=== PATIENT | female | born 1975 | race Caucasian/White ===

== ENCOUNTER 2016-12-15 17:42 | Emergency (ER) | payer OTHER ==
[2016-12-15 18:00] VITALS: TEMP 98
[2016-12-15] MEDS ORDERED: IOPAMIDOL (ISOVUE 370) 100 ML BTL IV ONE ×2 (19:21)
--- NOTE | 2016-12-15 19:29 | EDPHY ---
H & P Stated Complaint: dizzyness- feeling like she is in water since allergic RX on Time Seen by Provider: 12/15/16 17:50 HPI/ROS: Chief Complaint: Dizzy, headache, neck pain, difficulty concentrating HPI: 41-year-old woman who has been having this sensation of vertigo or unsteadiness on her feet as if the floor is moving around her, bilateral headache and some neck pain for the last 2 weeks. She believes that the symptoms began after she had an episode of anaphylaxis. She was seen in urgent care received Benadryl, steroids and epinephrine. This was on the month. Since that time she has had the symptoms which seem to be worsening. She has had some neck pain. She did see the chiropractor who believes that symptoms are secondary to her 1st cervical vertebrae. Denies any other traumatic injuries. No fevers or chills. No chest pain shortness of breath. No numbness or weakness. No vision or hearing changes. She states she is feeling very foggy and mildly confused. She has an appointment to see a neurologist in 5 days but is concerned that the symptoms are persisting. ROS: 10 point Review of Systems is negative except as noted in the HPI. PMH: Chronic fatigue syndrome years ago Social History: No smoking, occasional alcohol, no recreational drug use Family History: non-contributory Physical Exam: Gen: Awake, Alert, No Distress HEENT: Nose: no rhinorrhea Eyes: PERRLA, EOMI Mouth: Moist mucosa Neck: Supple, no JVD Chest: nontender, lungs clear to auscultation Heart: S1, S2 normal, no murmur Abd: Soft, non-tender, no guarding Back: no CVA tenderness, no midline tenderness Ext: no edema, non-tender Skin: no rash Neuro: CN II-XII intact, Sensation grossly intact, Strength 5/5 in bilateral upper and lower extremities, normal finger-nose, normal heel-oliveros. Negative Romberg. No nystagmus. Sensations fully intact. - Personal History LMP (Females 10-55): 15-21 Days Ago Current Tetanus Diphtheria and Acellular Pertussis (TDAP): Yes Tetanus Vaccine Date: 2010 - Medical/Surgical History Hx Asthma: Yes Hx Chronic Respiratory Disease: No Hx Diabetes: No Hx Cardiac Disease: No Hx Renal Disease: No Hx Cirrhosis: No Hx Alcoholism: No Hx HIV/AIDS: No Other PMH: ORTHO - Social History Smoking Status: Never smoked Constitutional: Initial Vital Signs Temperature (C) 36.6 C 12/15/16 17:57 Heart Rate 64 12/15/16 17:57 Respiratory Rate 18 12/15/16 17:57 Blood Pressure 154/100 H 12/15/16 17:57 O2 Sat (%) 94 12/15/16 17:57 O2 Delivery Mode Room Air Allergies/Adverse Reactions: No Known Allergies Allergy (Verified 11/14/12 16:58) Home Medications: Medication Instructions Recorded Albuterol INH Nucare 05/08/10 Albuterol [Proventil Neb] 2.5 mg IH QID #30 deyvial 05/10/10 Medical Decision Making - Diagnostics Imaging Results: Imaging Impressions Head CT 12/15/16 18:25 Impression: Normal. Results called and discussed with Todd James MD, at 12/15/2016 18:45 General information for patients regarding this examination can be found at [email or web address]. If you have questions or comments about this report, please contact me at [phone] (hospital) or [phone] (cell). Head CTA 12/15/16 19:17 Impression: Normal. Findings and recommendations discussed with Todd James MD at 2045 hour, 12/15/2016. Final report concurs with initial preliminary interpretation. Neck CTA 12/15/16 19:17 Impression: Normal. Note: All stenoses are calculated using NASCET Criteria. Findings and recommendations discussed with Todd James MD at 2045 hour, 12/15/2016. Final report concurs with initial preliminary interpretation. Imaging: Discussed imaging studies w/ scallop binder Radiologist ED Course/Re-evaluation: 41-year-old woman presenting with dizziness for the last 10 days or so some nausea and fogginess. She also has had some neck pain headache. Will obtain CT scan to rule out intracranial pathology reassess CT scan of the head is negative. Patient is having vertiginous symptoms with neck pain and headache and has had chiropractic manipulation. This is concerning for possible vertebral artery dissection. Will obtain CT angiogram head neck and reassess. CT angiograms are normal. No acute intracranial process identified on CT scanning at this time. Patient's symptomatology is nonfocal otherwise. No other findings on her neurologic exam. She has no point with Neurology in 5 days. Will discharge with follow-up as planned. She will return for any worsening of symptoms or any other concerns. No evidence of acute ischemic stroke at this time. - Data Points Medications Given: Discontinued Medications Sodium Chloride (Ns) 1,000 mls @ 0 mls/hr IV ONCE ONE; Wide Open PRN Reason: Protocol Stop: 12/15/16 20:08 Last Admin: 12/15/16 20:11 Dose: 1,000 mls Departure - Departure Disposition: Home, Routine, Self-Care Clinical Impression: Dizziness Condition: Good Instructions: Dizziness (ED) Additional Instructions: Follow up with your neurologist in 5 days as scheduled. Return to the emergency department for worsening dizziness, uncontrolled nausea or vomiting, worsening headache, fevers, chills, increasing confusion or any other concerns. Referrals: Ronit Leiva MD [[facility] [place] Primary Care Provider] - As per Instructions
--- NOTE | 2016-12-15 19:29 | EDPHY ---
H & P Stated Complaint: dizzyness- feeling like she is in water since allergic RX on Time Seen by Provider: 12/15/16 17:50 HPI/ROS: Chief Complaint: Dizzy, headache, neck pain, difficulty concentrating HPI: 41-year-old woman who has been having this sensation of vertigo or unsteadiness on her feet as if the floor is moving around her, bilateral headache and some neck pain for the last 2 weeks. She believes that the symptoms began after she had an episode of anaphylaxis. She was seen in urgent care received Benadryl, steroids and epinephrine. This was on the month. Since that time she has had the symptoms which seem to be worsening. She has had some neck pain. She did see the chiropractor who believes that symptoms are secondary to her 1st cervical vertebrae. Denies any other traumatic injuries. No fevers or chills. No chest pain shortness of breath. No numbness or weakness. No vision or hearing changes. She states she is feeling very foggy and mildly confused. She has an appointment to see a neurologist in 5 days but is concerned that the symptoms are persisting. ROS: 10 point Review of Systems is negative except as noted in the HPI. PMH: Chronic fatigue syndrome years ago Social History: No smoking, occasional alcohol, no recreational drug use Family History: non-contributory Physical Exam: Gen: Awake, Alert, No Distress HEENT: Nose: no rhinorrhea Eyes: PERRLA, EOMI Mouth: Moist mucosa Neck: Supple, no JVD Chest: nontender, lungs clear to auscultation Heart: S1, S2 normal, no murmur Abd: Soft, non-tender, no guarding Back: no CVA tenderness, no midline tenderness Ext: no edema, non-tender Skin: no rash Neuro: CN II-XII intact, Sensation grossly intact, Strength 5/5 in bilateral upper and lower extremities, normal finger-nose, normal heel-oliveros. Negative Romberg. No nystagmus. Sensations fully intact. - Personal History LMP (Females 10-55): 15-21 Days Ago Current Tetanus Diphtheria and Acellular Pertussis (TDAP): Yes Tetanus Vaccine Date: 2010 - Medical/Surgical History Hx Asthma: Yes Hx Chronic Respiratory Disease: No Hx Diabetes: No Hx Cardiac Disease: No Hx Renal Disease: No Hx Cirrhosis: No Hx Alcoholism: No Hx HIV/AIDS: No Other PMH: ORTHO - Social History Smoking Status: Never smoked Constitutional: Initial Vital Signs Temperature (C) 36.6 C 12/15/16 17:57 Heart Rate 64 12/15/16 17:57 Respiratory Rate 18 12/15/16 17:57 Blood Pressure 154/100 H 12/15/16 17:57 O2 Sat (%) 94 12/15/16 17:57 O2 Delivery Mode Room Air Allergies/Adverse Reactions: No Known Allergies Allergy (Verified 11/14/12 16:58) Home Medications: Medication Instructions Recorded Albuterol INH Nucare 05/08/10 Albuterol [Proventil Neb] 2.5 mg IH QID #30 deyvial 05/10/10 Medical Decision Making - Diagnostics Imaging Results: Imaging Impressions Head CT 12/15/16 18:25 Impression: Normal. Results called and discussed with Todd James MD, at 12/15/2016 18:45 General information for patients regarding this examination can be found at [email or web address]. If you have questions or comments about this report, please contact me at [phone] (hospital) or [phone] (cell). Head CTA 12/15/16 19:17 Impression: Normal. Findings and recommendations discussed with Todd James MD at 2045 hour, 12/15/2016. Final report concurs with initial preliminary interpretation. Neck CTA 12/15/16 19:17 Impression: Normal. Note: All stenoses are calculated using NASCET Criteria. Findings and recommendations discussed with Todd James MD at 2045 hour, 12/15/2016. Final report concurs with initial preliminary interpretation. Imaging: Discussed imaging studies w/ hybrid technologist Radiologist ED Course/Re-evaluation: 41-year-old woman presenting with dizziness for the last 10 days or so some nausea and fogginess. She also has had some neck pain headache. Will obtain CT scan to rule out intracranial pathology reassess CT scan of the head is negative. Patient is having vertiginous symptoms with neck pain and headache and has had chiropractic manipulation. This is concerning for possible vertebral artery dissection. Will obtain CT angiogram head neck and reassess. CT angiograms are normal. No acute intracranial process identified on CT scanning at this time. Patient's symptomatology is nonfocal otherwise. No other findings on her neurologic exam. She has no point with Neurology in 5 days. Will discharge with follow-up as planned. She will return for any worsening of symptoms or any other concerns. No evidence of acute ischemic stroke at this time. - Data Points Medications Given: Discontinued Medications Sodium Chloride (Ns) 1,000 mls @ 0 mls/hr IV ONCE ONE; Wide Open PRN Reason: Protocol Stop: 12/15/16 20:08 Last Admin: 12/15/16 20:11 Dose: 1,000 mls Departure - Departure Disposition: Home, Routine, Self-Care Clinical Impression: Dizziness Condition: Good Instructions: Dizziness (ED) Additional Instructions: Follow up with your neurologist in 5 days as scheduled. Return to the emergency department for worsening dizziness, uncontrolled nausea or vomiting, worsening headache, fevers, chills, increasing confusion or any other concerns. Referrals: Ronit Leiva MD [[facility] [place] Primary Care Provider] - As per Instructions
--- NOTE | 2016-12-15 19:29 | EDPHY ---
H & P Stated Complaint: dizzyness- feeling like she is in water since allergic RX on Time Seen by Provider: 12/15/16 17:50 HPI/ROS: Chief Complaint: Dizzy, headache, neck pain, difficulty concentrating HPI: 41-year-old woman who has been having this sensation of vertigo or unsteadiness on her feet as if the floor is moving around her, bilateral headache and some neck pain for the last 2 weeks. She believes that the symptoms began after she had an episode of anaphylaxis. She was seen in urgent care received Benadryl, steroids and epinephrine. This was on the month. Since that time she has had the symptoms which seem to be worsening. She has had some neck pain. She did see the chiropractor who believes that symptoms are secondary to her 1st cervical vertebrae. Denies any other traumatic injuries. No fevers or chills. No chest pain shortness of breath. No numbness or weakness. No vision or hearing changes. She states she is feeling very foggy and mildly confused. She has an appointment to see a neurologist in 5 days but is concerned that the symptoms are persisting. ROS: 10 point Review of Systems is negative except as noted in the HPI. PMH: Chronic fatigue syndrome years ago Social History: No smoking, occasional alcohol, no recreational drug use Family History: non-contributory Physical Exam: Gen: Awake, Alert, No Distress HEENT: Nose: no rhinorrhea Eyes: PERRLA, EOMI Mouth: Moist mucosa Neck: Supple, no JVD Chest: nontender, lungs clear to auscultation Heart: S1, S2 normal, no murmur Abd: Soft, non-tender, no guarding Back: no CVA tenderness, no midline tenderness Ext: no edema, non-tender Skin: no rash Neuro: CN II-XII intact, Sensation grossly intact, Strength 5/5 in bilateral upper and lower extremities, normal finger-nose, normal heel-oliveros. Negative Romberg. No nystagmus. Sensations fully intact. - Personal History LMP (Females 10-55): 15-21 Days Ago Current Tetanus Diphtheria and Acellular Pertussis (TDAP): Yes Tetanus Vaccine Date: 2010 - Medical/Surgical History Hx Asthma: Yes Hx Chronic Respiratory Disease: No Hx Diabetes: No Hx Cardiac Disease: No Hx Renal Disease: No Hx Cirrhosis: No Hx Alcoholism: No Hx HIV/AIDS: No Other PMH: ORTHO - Social History Smoking Status: Never smoked Constitutional: Initial Vital Signs Temperature (C) 36.6 C 12/15/16 17:57 Heart Rate 64 12/15/16 17:57 Respiratory Rate 18 12/15/16 17:57 Blood Pressure 154/100 H 12/15/16 17:57 O2 Sat (%) 94 12/15/16 17:57 O2 Delivery Mode Room Air Allergies/Adverse Reactions: No Known Allergies Allergy (Verified 11/14/12 16:58) Home Medications: Medication Instructions Recorded Albuterol INH Nucare 05/08/10 Albuterol [Proventil Neb] 2.5 mg IH QID #30 deyvial 05/10/10 Medical Decision Making - Diagnostics Imaging Results: Imaging Impressions Head CT 12/15/16 18:25 Impression: Normal. Results called and discussed with Todd James MD, at 12/15/2016 18:45 General information for patients regarding this examination can be found at [email or web address]. If you have questions or comments about this report, please contact me at [phone] (hospital) or [phone] (cell). Head CTA 12/15/16 19:17 Impression: Normal. Findings and recommendations discussed with Todd James MD at 2045 hour, 12/15/2016. Final report concurs with initial preliminary interpretation. Neck CTA 12/15/16 19:17 Impression: Normal. Note: All stenoses are calculated using NASCET Criteria. Findings and recommendations discussed with Todd James MD at 2045 hour, 12/15/2016. Final report concurs with initial preliminary interpretation. Imaging: Discussed imaging studies w/ call out clerk Radiologist ED Course/Re-evaluation: 41-year-old woman presenting with dizziness for the last 10 days or so some nausea and fogginess. She also has had some neck pain headache. Will obtain CT scan to rule out intracranial pathology reassess CT scan of the head is negative. Patient is having vertiginous symptoms with neck pain and headache and has had chiropractic manipulation. This is concerning for possible vertebral artery dissection. Will obtain CT angiogram head neck and reassess. CT angiograms are normal. No acute intracranial process identified on CT scanning at this time. Patient's symptomatology is nonfocal otherwise. No other findings on her neurologic exam. She has no point with Neurology in 5 days. Will discharge with follow-up as planned. She will return for any worsening of symptoms or any other concerns. No evidence of acute ischemic stroke at this time. - Data Points Medications Given: Discontinued Medications Sodium Chloride (Ns) 1,000 mls @ 0 mls/hr IV ONCE ONE; Wide Open PRN Reason: Protocol Stop: 12/15/16 20:08 Last Admin: 12/15/16 20:11 Dose: 1,000 mls Departure - Departure Disposition: Home, Routine, Self-Care Clinical Impression: Dizziness Condition: Good Instructions: Dizziness (ED) Additional Instructions: Follow up with your neurologist in 5 days as scheduled. Return to the emergency department for worsening dizziness, uncontrolled nausea or vomiting, worsening headache, fevers, chills, increasing confusion or any other concerns. Referrals: Ronit Leiva MD [[facility] [place] Primary Care Provider] - As per Instructions
[2016-12-15 19:32] VITALS: RESP 16
[2016-12-15] MEDS ORDERED: NS 1,000 ML IV ONE ×2 (20:07)
[2016-12-15 21:11] VITALS: BP 109/87; PULSE 56; O2SAT 98
== END 2016-12-15 21:11 | disposition home or self-care (01) ==
LOC: CED 17:42
DX: R42 Dizziness and giddiness (principal); J45.909 Unspecified asthma, uncomplicated; E86.9 Volume depletion, unspecified
CPT/HCPCS: 70450-PO; 70496-PO; 70498-PO; Q9967

== ENCOUNTER → 2017-11-08 | Outpatient (CLI) | payer OTHER | LOC: CIMAGING 12:24 | PROVIDERS: ATTEND Internal Medicine | DX: Z12.31 Encounter for screening mammogram for malignant neoplasm of breast (principal); Z80.3 Family history of malignant neoplasm of breast ==